=== PATIENT | male | born 1950 | race Caucasian/White ===

== ENCOUNTER 2017-02-16 07:26 | Observation (INO) | payer OTHER ==
[~2017-02-16] VITALS: Ht 177.8 cm; Wt 88.3 kg
[2017-02-16 07:38] LABS: BASOPHIL COUNT 0.1 K/uL (0-0.1); EOSINOPHIL (%) 2.3 % (0-5); EOSINOPHIL COUNT 0.1 K/uL (0-0.3); IMMATURE GRANULOCYTE (%) 1.3 % (0.0-0.7); IMMATURE GRANULOCYTE COUNT 0.1 K/uL; INSTRUMENT ABS NEUTROPHIL CT 3.6 K/uL; LYMPHOCYTE COUNT 1.8 K/uL (1.0-2.8); MCH 31.7 PG (29.0-34.0); MCHC 33.7 G/DL (30.0-36.0); MCV 94.1 FL (86-99); MONOCYTE (%) 8.1 % (3-12); MONOCYTE COUNT 0.5 K/uL (0-0.8); NEUTROPHIL (%) 58.5 % (45-76); NEUTROPHIL COUNT 3.6 K/uL (1.8-6.4); PLATELET COUNT 255 K/uL (156-360); RBC DIS.WIDTH-CV 12.7 % (11.8-14.6); RED BLOOD COUNT 3.72 M/uL (4.00-5.50); WHITE BLOOD COUNT 6.2 K/uL (4.1-10.2)
[2017-02-16 08:10] LABS: AMYLASE 75 IU/L (1-118); ANION GAP 11 MEQ/L (2-14); CHLORIDE 105 MEQ/L (99-109); POTASSIUM 3.6 MEQ/L (3.7-5.4); SAMPLE HEMOLYSIS CHECK 0; SAMPLE ICTERIC CHECK 0; SAMPLE LIPEMIA CHECK 0; SODIUM 140 MEQ/L (136-147)
[2017-02-16 08:16] LABS: GFR ESTIMATE (CALCULATED) > 59 mL/min/; GLUCOSE 172 mg/dL (70-99); LIPASE 34 U/L (1.0-51.0); SERUM ETHYL ALCOHOL < 10 mg/dL; UREA NITROGEN (BUN) 24 mg/dL (9-23)
[2017-02-16] MEDS ORDERED: PERCOCET 5/31 TABLET PO (13:29)
[2017-02-16 14:04] LABS: POINT-OF-CARE METER ID UU13113702
[2017-02-16 14:32] LABS: ADD MIUA? NO; BILIRUBIN NEGATIVE; BLOOD NEGATIVE; COLOR YELLOW ((YELLOW)); GLUCOSE (STRIP) NEGATIVE; KETONES NEGATIVE; LEUKOCYTES NEGATIVE; NITRITE NEGATIVE; PROTEIN (STRIP) NEGATIVE; SPECIFIC GRAVITY 1.035 (1.000-1.030); UCUL ADDED? NO; UROBILINOGEN 0.2 MG/DL (0.2-1.0)
[2017-02-16 14:42] LABS: ADD MEDTOX COMMENT Y; AMPHETAMINE NEGATIVE (500 ng/mL); BARBITURATES NEGATIVE (200 ng/mL); BENZODIAZEPINES NEGATIVE (150 ng/mL); COCAINE NEGATIVE (150 ng/mL); INTERNAL CONTROLS VALID? YES; METHADONE NEGATIVE (200 ng/mL); METHAMPHETAMINE NEGATIVE (500 ng/mL); OPIATES (MORPHINE) PRESUMPTIVE POSITIVE (100 ng/mL); OXYCODONE NEGATIVE (100 ng/mL); PHENCYCLIDINE NEGATIVE (25 ng/mL); PROPOXYPHENE NEGATIVE (300 ng/mL); THC CANNABINOIDS NEGATIVE (50 ng/mL); TRICYCLIC ANTIDEPRESSANTS NEGATIVE (300 ng/mL)
[2017-02-16] MEDS ORDERED: IBUPROFEN800 MG PO (14:47)
[2017-02-16] MEDS ORDERED: AMOXICILLIN500 MG PO (14:48)
[2017-02-16] MEDS ORDERED: SINGULAIR10 MG PO (14:49)
[2017-02-16] MEDS ORDERED: LIPITOR40 MG PO (14:49)
[2017-02-16] MEDS ORDERED: NORCO 7.5/321 TABLET PO (14:49)
[2017-02-16] MEDS ORDERED: PAXIL30 MG PO (14:50)
[2017-02-16] MEDS ORDERED: DESYREL100 MG PO (14:50)
[2017-02-16] MEDS ORDERED: TRICOR145 MG PO (14:51)
[2017-02-16] MEDS ORDERED: DAILY VALUE1 EACH PO (14:52)
[2017-02-16] MEDS ORDERED: EXFORGE HCT 101 EACH PO (14:52)
[2017-02-16 16:33] VITALS: BP 135/77
[2017-02-16 20:03] VITALS: BP 128/58
[2017-02-16 23:58] VITALS: BP 121/58
[2017-02-17 03:52] VITALS: BP 118/63
[2017-02-17 05:57] LABS: EOSINOPHIL (%) 0.6 % (0-5); EOSINOPHIL COUNT 0.1 K/uL (0-0.3); HEMATOCRIT 34.7 % (38.0-50.0); IMMATURE GRANULOCYTE (%) 0.4 % (0.0-0.7); INSTRUMENT ABS NEUTROPHIL CT 6.3 K/uL; LYMPHOCYTE COUNT 1.7 K/uL (1.0-2.8); MCH 32.7 PG (29.0-34.0); MCHC 34.6 G/DL (30.0-36.0); MCV 94.6 FL (86-99); MEAN PLAT.VOLUME 10.9 uM^3 (9.0-12.4); MONOCYTE (%) 13.2 % (3-12); MONOCYTE COUNT 1.2 K/uL (0-0.8); NEUTROPHIL COUNT 6.3 K/uL (1.8-6.4); PLATELET COUNT 253 K/uL (156-360); RBC DIS.WIDTH-CV 12.9 % (11.8-14.6); RBC DIS.WIDTH-SD 44.8 % (39-53); RED BLOOD COUNT 3.67 M/uL (4.00-5.50); WHITE BLOOD COUNT 9.3 K/uL (4.1-10.2)
[2017-02-17 06:41] LABS: ANION GAP 10 MEQ/L (2-14); CHLORIDE 105 MEQ/L (99-109); SAMPLE HEMOLYSIS CHECK 0; SAMPLE ICTERIC CHECK 0; SAMPLE LIPEMIA CHECK 0; SODIUM 138 MEQ/L (136-147); TOTAL BILIRUBIN 0.8 MG/DL (0.0-1.0)
[2017-02-17 06:49] LABS: ALKALINE PHOSPHATASE 24 IU/L (3-129); GFR ESTIMATE (CALCULATED) > 59 mL/min/; UREA NITROGEN (BUN) 18 mg/dL (9-23)
[2017-02-17 06:51] LABS: GLUCOSE 112 mg/dL (70-99)
[2017-02-17 07:15] VITALS: BP 126/62
[2017-02-17 11:26] VITALS: BP 130/65
== END 2017-02-17 13:57 | disposition home or self-care (01) ==
LOC: TRA 07:26 → 3EAST 10:30 → EDOF 10:30 → ENRESERV 10:38 → 3EAST 16:04
PROVIDERS: Emergency Medicine; Surgery
DX: S22.42XA Multiple fractures of ribs, left side, initial encounter for closed fracture (principal); S42.022A Displaced fracture of shaft of left clavicle, initial encounter for closed fracture; S80.211A Abrasion, right knee, initial encounter; I95.9 Hypotension, unspecified; R41.9 Unspecified symptoms and signs involving cognitive functions and awareness; R61 Generalized hyperhidrosis; I10 Essential (primary) hypertension; G47.33 Obstructive sleep apnea (adult) (pediatric); F39 Unspecified mood [affective] disorder; Z98.1 Arthrodesis status; S80.212A Abrasion, left knee, initial encounter; J44.9 Chronic obstructive pulmonary disease, unspecified; V89.2XXA Person injured in unspecified motor-vehicle accident, traffic, initial encounter; Y92.410 Unspecified street and highway as the place of occurrence of the external cause
CPT/HCPCS: 70450; 71020; 71260; 72125; 72129; 72132; 73000; 73030; 74177; 80048; 80053; 81003; 82150; 82948; 83690; 84999; 85025; 86850; 86900; 86901; 90686; 93005; 94660; 99281; 99285; G0378; G0480; J2270; J3480